=== PATIENT | male | born 1990 | race Caucasian/White ===

== ENCOUNTER 2019-09-27 00:09 | Emergency (ER) | payer SELFPAY ==
[~2019-09-27] VITALS: Ht 172.7 cm; Wt 77.1 kg
[~2019-09-27 00:09] MED LIST: CETI5TAB6 PO; FLO110 IH
[2019-09-27 00:20] VITALS: BP_SYST 135
--- NOTE | 2019-09-27 00:24 | NUR ---
tPatient triaged and placed in waiting room. VSS and patient appears in no acute distress at this time. Accompanied by self, awaiting available bed, and MD notified of need for MSE.
--- NOTE | 2019-09-27 01:07 | NUR ---
Patient to ER bed 05 for evaluation. Side rails up.
--- NOTE | 2019-09-27 01:30 | NUR ---
Patient AAO x 4 ambulates to ER bed 05 with complaints of cough, fever, fatigue, and chills x 4 days and vomited x 2 episodes today. Self medicated with Tylenol x 3 hours ago. Current TA temperature is 98.8 F. Even chest rise and fall with respirations. Will continue to monitor.
[2019-09-27] MEDS ORDERED: ONDANSETRON 4 MG ODT TAB PO ONE (01:45)
--- NOTE | 2019-09-27 02:04 | NUR ---
Medication administered. Pt tolerated well.
--- NOTE | 2019-09-27 02:35 | NUR ---
Patient given written and verbal discharge instructions and verbalizes understanding. ER MD Gerardo discussed with patient the results and treatment provided. Patient in stable condition. ID arm band removed. Rx of Zofran given. Patient educated on pain management and to follow up with PMD. Pain Scale 0. Opportunity for questions provided and answered. Medication side effect fact sheet provided.
[2019-09-27 02:37] VITALS: BP_SYST 127
== END 2019-09-27 02:35 | disposition home or self-care (01) ==
LOC: SED 00:09
DX: R09.81 Nasal congestion (principal); R05 Cough; R11.10 Vomiting, unspecified; J45.909 Unspecified asthma, uncomplicated
CPT/HCPCS: 86710; 99283; Q0162; 36415

== ENCOUNTER 2020-04-10 19:53 | Emergency (ER) | payer OTHER ==
[~2020-04-10] VITALS: Ht 172.7 cm; Wt 77.1 kg
[2020-04-10 20:10] VITALS: BP_SYST 155
[2020-04-10 23:36] VITALS: BP_SYST 136
== END 2020-04-10 23:36 | disposition home or self-care (01) ==
LOC: SED 19:53
DX: S33.5XXA Sprain of ligaments of lumbar spine, initial encounter (principal); S13.9XXA Sprain of joints and ligaments of unspecified parts of neck, initial encounter; J45.909 Unspecified asthma, uncomplicated; X50.0XXA Overexertion from strenuous movement or load, initial encounter; Y93.89 Activity, other specified; Y92.89 Other specified places as the place of occurrence of the external cause; Y99.8 Other external cause status
CPT/HCPCS: 70450-TC; 72125-TC; 72131; 99285

== ENCOUNTER 2020-06-15 19:49 | Emergency (ER) | payer SELFPAY ==
[~2020-06-15] VITALS: Ht 175.3 cm; Wt 77.1 kg
[2020-06-15 20:20] VITALS: BP_SYST 139
--- NOTE | 2020-06-15 20:20 | NUR ---
Placed in room 7 . Placed on library monitor, blood pressure machine and pulse oximeter. To gown for exam. Side rails up.
--- NOTE | 2020-06-15 20:24 | NUR ---
ER at bedside examining patient.
--- NOTE | 2020-06-15 20:25 | NUR ---
Pt presents to the ER c/o spider bite to the R wrist x 20 mins ago. Pt denies SOB, d/c, hives. Pt has localized redness. Denies allergies.
--- NOTE | 2020-06-15 21:22 | NUR ---
Lisha keller in ED - 06/15/20 at 2133 by [email or web address] VALDO Henry at bedside examining patient.
--- NOTE | 2020-06-15 21:24 | NUR ---
Note undone in EDM - 06/15/20 at 2134 by [email or web address] Pt presents to the ER c/o spider bite to the R wrist x 20 mins ago. Pt denies SOB, d/c, hives. Pt has localized redness. Denies allergies.
[2020-06-15 21:30] VITALS: BP_SYST 139
--- NOTE | 2020-06-15 21:30 | NUR ---
Patient given written and verbal discharge instructions and verbalizes understanding. ER MD discussed with patient the results and treatment provided. Patient in stable condition. ID arm band removed. Patient educated on pain management and to follow up with PMD. Opportunity for questions provided and answered. Medication side effect fact sheet provided.
== END 2020-06-15 21:30 | disposition home or self-care (01) ==
LOC: SED 19:49
DX: T63.391A Toxic effect of venom of other spider, accidental (unintentional), initial encounter (principal); Y92.89 Other specified places as the place of occurrence of the external cause
CPT/HCPCS: 99281

== ENCOUNTER 2020-07-02 00:01 | Emergency (ER) | payer SELFPAY ==
[~2020-07-02] VITALS: Ht 175.3 cm; Wt 77.1 kg
[2020-07-02 00:05] VITALS: BP_SYST 155
--- NOTE | 2020-07-02 00:10 | NUR ---
Patient to ER bed 7 to gown for evaluation. Side rails up. Report given to JOHN CEDILLO.
--- NOTE | 2020-07-02 00:12 | NUR ---
Dr. Foster bedside for pt eval
[2020-07-02] MEDS ORDERED: NACL 0.9% 1,000 ML IV ONE (00:15)
[2020-07-02] MEDS ORDERED: KETOROLAC TROMETHAMINE 30 MG VIAL IVP ONE (00:15)
--- NOTE | 2020-07-02 00:15 | NUR ---
Pt BIB family to ED C/O having 8-day abdominal pain associated with blood streak stools. Pain is periumbilical and rated 7/10. He denies past medical history of surgeries. No other complaints noted VSS no s/s of acute distress Resting on gurney rails up
--- NOTE | 2020-07-02 00:30 | NUR ---
Pt taken to Radiology in stable condition
--- NOTE | 2020-07-02 00:50 | NUR ---
Pt back from Radiology, well tolerated
--- NOTE | 2020-07-02 01:06 | NUR ---
Lab bedside for blood draw
[2020-07-02 01:31] LABS: CREATININE 0.89 mg/dL (0.55-1.30); POTASSIUM 3.3 mmol/L (3.5-5.1)
[2020-07-02 01:33] LABS: BILIRUBIN,URINE NEGATIVE (NEGATIVE); BLOOD, URINE NEGATIVE (NEGATIVE); CLARITY/URINE CLEAR (CLEAR); COLOR,URINE YELLOW (YELLOW); GLUCOSE,URINE NEGATIVE (NEGATIVE); KETONES,URINE NEGATIVE (NEGATIVE); LEUKOCYTE ESTERASE ,URINE NEGATIVE (NEGATIVE); NITRITE, URINE NEGATIVE (NEGATIVE); PH,URINE 7.5 (5.0-8.0); PROTEIN URINE NEGATIVE (NEGATIVE); UROBILINOGEN,URINE 0.2 (0.2-1.0)
[2020-07-02 01:35] LABS: BASOPHILS % (AUTO) 0.5 % (0.0-2.0); EOSINOPHILS # (AUTO) 0.2 K/uL (0.0-0.4); EOSINOPHILS % (AUTO) 3.6 % (0.0-4.0); HEMATOCRIT 45.3 % (36-54); HEMOGLOBIN 15.7 g/dL (14.0-18.0); LYMPHOCYTES # (AUTO) 2.3 K/uL (1.0-5.5); LYMPHOCYTES % (AUTO) 34.6 % (20.5-51.5); MEAN CORPUSCULAR HEMOGLOBIN 29 pg (27-31); MEAN CORPUSCULAR HGB CONC 35 % (32-36); MEAN CORPUSCULAR VOLUME 84 fL (79.0-98.0); MONOCYTES # (AUTO) 0.4 K/uL (0.0-1.0); MONOCYTES % (AUTO) 6.9 % (1.7-9.3); NEUTROPHILS # (AUTO) 3.6 K/uL (1.8-7.7); NEUTROPHILS % (AUTO) 54.4 % (40.0-70.0); PLATELET COUNT (AUTO) 266 K/uL (130-430); RED BLOOD CELL COUNT(AUTO) 5.42 MIL/uL (4.2-6.2); RED CELL DISTRIBUTION WIDTH 12.4 % (9.0-15.0); WHITE BLOOD COUNT (AUTO) 6.6 K/uL (4.8-10.8)
[2020-07-02 01:37] LABS: ALBUMIN 4.4 g/dL (3.4-4.8); TOTAL BILIRUBIN 0.4 mg/dL (0.0-1.0)
[2020-07-02 01:38] VITALS: BP_SYST 155
--- NOTE | 2020-07-02 01:38 | NUR ---
Patient given written and verbal discharge instructions and verbalizes understanding. ER MD discussed with patient the results and treatment provided. Patient in stable condition. ID arm band removed. Rx of Milk of Magnesia given. Patient educated on pain management and to follow up with PMD. Pain Scale 0/10 Opportunity for questions provided and answered. Medication side effect fact sheet provided.
== END 2020-07-02 01:38 | disposition home or self-care (01) ==
LOC: SED 00:01
DX: K59.00 Constipation, unspecified (principal); J45.909 Unspecified asthma, uncomplicated
CPT/HCPCS: 36415; 80053; 81003; 85025; 99284

== ENCOUNTER 2020-11-06 06:13 | Emergency (ER) | payer SELFPAY ==
[~2020-11-06] VITALS: Ht 175.3 cm; Wt 77.1 kg
[2020-11-06 06:13] VITALS: BP_SYST 162
[2020-11-06] MEDS ORDERED: NACL 0.9% 1,000 ML IV ONE (06:30)
[2020-11-06 07:07] LABS: BASOPHILS % (AUTO) 0.2 % (0.0-2.0); EOSINOPHILS % (AUTO) 0.4 % (0.0-4.0); HEMATOCRIT 44.4 % (36-54); HEMOGLOBIN 15.4 g/dL (14.0-18.0); LYMPHOCYTES # (AUTO) 0.9 K/uL (1.0-5.5); LYMPHOCYTES % (AUTO) 11.6 % (20.5-51.5); MEAN CORPUSCULAR HEMOGLOBIN 29 pg (27-31); MEAN CORPUSCULAR HGB CONC 35 % (32-36); MEAN CORPUSCULAR VOLUME 83 fL (79.0-98.0); MONOCYTES # (AUTO) 0.3 K/uL (0.0-1.0); MONOCYTES % (AUTO) 4.5 % (1.7-9.3); NEUTROPHILS # (AUTO) 6.5 K/uL (1.8-7.7); NEUTROPHILS % (AUTO) 83.3 % (40.0-70.0); PLATELET COUNT (AUTO) 239 K/uL (130-430); RED BLOOD CELL COUNT(AUTO) 5.34 MIL/uL (4.2-6.2); RED CELL DISTRIBUTION WIDTH 12.8 % (9.0-15.0); WHITE BLOOD COUNT (AUTO) 7.8 K/uL (4.8-10.8)
[2020-11-06 07:25] LABS: ANION GAP 9 (5-15); CALCIUM 9.1 mg/dL (8.4-11.0); CHLORIDE 104 mmol/L (98-107); GLUCOSE 102 mg/dL (70-99); POTASSIUM 3.3 mmol/L (3.5-5.1); SODIUM SERUM 141 mmol/L (136-145); UREA NITROGEN, BLOOD 12 mg/dL (8-21)
[2020-11-06 07:29] LABS: GFR AFRICAN AMERICAN 114 mL/min (>90)
[2020-11-06 07:32] LABS: BILIRUBIN,URINE NEGATIVE (NEGATIVE); BLOOD, URINE NEGATIVE (NEGATIVE); CLARITY/URINE CLEAR (CLEAR); COLOR,URINE YELLOW (YELLOW); GLUCOSE,URINE NEGATIVE (NEGATIVE); KETONES,URINE NEGATIVE (NEGATIVE); LEUKOCYTE ESTERASE ,URINE NEGATIVE (NEGATIVE); NITRITE, URINE NEGATIVE (NEGATIVE); PROTEIN URINE TRACE (NEGATIVE); UROBILINOGEN,URINE 0.2 (0.2-1.0)
[2020-11-06 07:33] LABS: ALANINE AMINOTRANSFERASE 87 U/L (12-78); ALBUMIN 4.1 g/dL (3.4-4.8); ASPARTATE AMINOTRANSFERASE 37 U/L (10-37); TOTAL BILIRUBIN 0.8 mg/dL (0.0-1.0)
[2020-11-06 07:41] LABS: BARBITURATE, URINE NEGATIVE (NEG <=200); BENZODIAZEPINE, URINE NEGATIVE (NEG <=150); CANNABINOID, URINE NEGATIVE (NEG <=50); COCAINE, URINE NEGATIVE (NEG <=150); METHAMPHETAMINES SCREEN,URINE NEGATIVE (NEG <=500); OPIATE, URINE NEGATIVE (NEG <=100); PHENCYCLIDINE SCREEN,URINE NEGATIVE (NEG <=25); UR TRICYCLIC ANTIDEPRESSANTS NEGATIVE (NEG <=300); URINE AMPHETAMINE NEGATIVE (NEG <=500); URINE METHADONE NEGATIVE (NEG <=200); URINE OXYCODONE SCREEN NEGATIVE (NEG <=100); URINE PROPOXYPHENE SCREEN NEGATIVE (NEG <=300)
[2020-11-06 08:11] LABS: FREE T4 (FREE THYROXINE) 0.7 ng/dL (0.6-1.6); THYROID STIMULATING HORMONE 0.48 uIu/mL (0.34-4.82)
[2020-11-06 08:23] VITALS: BP_SYST 137
== END 2020-11-06 08:20 | disposition home or self-care (01) ==
LOC: SED 06:13
DX: J98.01 Acute bronchospasm (principal); Z20.822 Contact with and (suspected) exposure to COVID-19
CPT/HCPCS: 36415; 71045; 80053; 80307; 81003; 84439; 84443-TC; 84484; 85025; 93005; 99285

== ENCOUNTER 2020-12-02 21:50 | Emergency (ER) | payer SELFPAY ==
[~2020-12-02] VITALS: Ht 172.7 cm; Wt 77.1 kg
[2020-12-02 22:00] VITALS: BP_SYST 168
[2020-12-02 22:34] LABS: CALCIUM 9.5 mg/dL (8.4-11.0); CREATININE 1.12 mg/dL (0.55-1.30); POTASSIUM 3.5 mmol/L (3.5-5.1)
[2020-12-02 22:35] LABS: HEMATOCRIT 45.9 % (36-54); HEMOGLOBIN 15.8 g/dL (14.0-18.0); RED BLOOD CELL COUNT(AUTO) 5.47 MIL/uL (4.2-6.2)
[2020-12-02 22:36] LABS: BASOPHILS % (AUTO) 3.7 % (0.0-2.0); EOSINOPHILS % (AUTO) 1.4 % (0.0-4.0); LYMPHOCYTES % (AUTO) 20.7 % (20.5-51.5); MEAN CORPUSCULAR HEMOGLOBIN 29 pg (27-31); MEAN CORPUSCULAR HGB CONC 35 % (32-36); MEAN CORPUSCULAR VOLUME 84 fL (79.0-98.0); MONOCYTES % (AUTO) 7.3 % (1.7-9.3); NEUTROPHILS # (AUTO) 4.7 K/uL (1.8-7.7); NEUTROPHILS % (AUTO) 66.9 % (40.0-70.0); PLATELET COUNT (AUTO) 294 K/uL (130-430); RED CELL DISTRIBUTION WIDTH 12.8 % (9.0-15.0)
[2020-12-02 22:37] LABS: BASOPHILS # (AUTO) 0.3 K/uL (0.0-0.2); EOSINOPHILS # (AUTO) 0.1 K/uL (0.0-0.4); LYMPHOCYTES # (AUTO) 1.8 K/uL (1.0-5.5); MONOCYTES # (AUTO) 0.5 K/uL (0.0-1.0)
[2020-12-02 22:40] LABS: ALBUMIN 4.5 g/dL (3.4-4.8); TOTAL BILIRUBIN 0.6 mg/dL (0.0-1.0)
[2020-12-02] MEDS ORDERED: IBUP-1971 PO (22:44)
[2020-12-02 23:03] VITALS: BP_SYST 170
== END 2020-12-02 23:03 | disposition home or self-care (01) ==
LOC: SED 21:50
DX: S09.90XA Unspecified injury of head, initial encounter (principal); W18.09XA Striking against other object with subsequent fall, initial encounter; Y93.89 Activity, other specified; Y92.89 Other specified places as the place of occurrence of the external cause; Y99.8 Other external cause status
CPT/HCPCS: 36415; 70450-TC; 76376; 80053; 85025; 99284

== ENCOUNTER 2021-02-04 23:27 | Emergency (ER) | payer SELFPAY ==
[~2021-02-04] VITALS: Ht 175.3 cm; Wt 77.1 kg
[~2021-02-04 23:27] MED LIST changes: -CETI5TAB6 PO; -FLO110 IH; +IBUP-1971 PO
[2021-02-04 23:39] VITALS: BP_SYST 152
[2021-02-05] MEDS ORDERED: NACL 0.9% 1,000 ML IV ONE
[2021-02-05] MEDS ORDERED: ONDANSETRON HCL 4 MG/2 ML VIAL IVP ONE (00:15)
[2021-02-05] MEDS ORDERED: MORPHINE 4 MG INJ. 4 MG/ML VIAL IVP ONE (00:15)
[2021-02-05 00:16] LABS: BILIRUBIN,URINE NEGATIVE (NEGATIVE); BLOOD, URINE NEGATIVE (NEGATIVE); CLARITY/URINE SL CLOUDY (CLEAR); COLOR,URINE YELLOW (YELLOW); GLUCOSE,URINE NEGATIVE (NEGATIVE); KETONES,URINE NEGATIVE (NEGATIVE); LEUKOCYTE ESTERASE ,URINE NEGATIVE (NEGATIVE); NITRITE, URINE NEGATIVE (NEGATIVE); PH,URINE 7.5 (5.0-8.0); PROTEIN URINE NEGATIVE (NEGATIVE); UROBILINOGEN,URINE 0.2 (0.2-1.0)
[2021-02-05 00:28] LABS: BASOPHILS % (AUTO) 0.6 % (0.0-2.0); EOSINOPHILS # (AUTO) 0.2 K/uL (0.0-0.4); HEMATOCRIT 46.1 % (36-54); HEMOGLOBIN 15.9 g/dL (14.0-18.0); LYMPHOCYTES # (AUTO) 2.5 K/uL (1.0-5.5); LYMPHOCYTES % (AUTO) 41.9 % (20.5-51.5); MEAN CORPUSCULAR HEMOGLOBIN 29 pg (27-31); MEAN CORPUSCULAR HGB CONC 35 % (32-36); MEAN CORPUSCULAR VOLUME 83 fL (79.0-98.0); MONOCYTES # (AUTO) 0.4 K/uL (0.0-1.0); MONOCYTES % (AUTO) 6.8 % (1.7-9.3); NEUTROPHILS # (AUTO) 2.8 K/uL (1.8-7.7); NEUTROPHILS % (AUTO) 47.7 % (40.0-70.0); PLATELET COUNT (AUTO) 269 K/uL (130-430); RED BLOOD CELL COUNT(AUTO) 5.53 MIL/uL (4.2-6.2); RED CELL DISTRIBUTION WIDTH 12.8 % (9.0-15.0); WHITE BLOOD COUNT (AUTO) 5.9 K/uL (4.8-10.8)
[2021-02-05 00:35] LABS: CALCIUM 9.8 mg/dL (8.4-11.0); CREATININE 1.23 mg/dL (0.55-1.30); POTASSIUM 3.7 mmol/L (3.5-5.1)
[2021-02-05 00:38] LABS: PROTHROMBIN TIME 9.9 SECS (9.5-12.5)
[2021-02-05 00:50] LABS: ALBUMIN 4.5 g/dL (3.4-4.8); TOTAL BILIRUBIN 0.6 mg/dL (0.0-1.0)
[2021-02-05] MEDS ORDERED: MAGNESIUM CITRATE 300 ML ORAL SOLUTION PO ONE (02:00)
[2021-02-05 02:11] VITALS: BP_SYST 152
== END 2021-02-05 02:13 | disposition home or self-care (01) ==
LOC: SED 23:27
DX: K59.00 Constipation, unspecified (principal); J45.909 Unspecified asthma, uncomplicated; Z79.899 Other long term (current) drug therapy
CPT/HCPCS: 36415; 74176; 76376; 80053; 81003; 82150; 83605; 83690; 85025; 85610; 87040; 99284; J2270; J2405

== ENCOUNTER 2021-04-08 21:05 | Emergency (ER) | payer SELFPAY ==
[~2021-04-08] VITALS: Ht 175.3 cm; Wt 81.6 kg
[2021-04-08 21:15] VITALS: BP_SYST 136
[2021-04-09] MEDS ORDERED: MECL-103 PO (00:22)
[2021-04-09] MEDS ORDERED: PHE25 PO (00:22)
[2021-04-09] MEDS ORDERED: BUTA1CAP43 PO (00:22)
[2021-04-09 00:35] VITALS: BP_SYST 136
== END 2021-04-09 00:35 | disposition home or self-care (01) ==
LOC: SED 21:05
DX: R51.9 Headache, unspecified (principal); J45.909 Unspecified asthma, uncomplicated; Z79.899 Other long term (current) drug therapy
CPT/HCPCS: 99283

== ENCOUNTER 2022-04-03 19:08 | Emergency (ER) | payer SELFPAY ==
[~2022-04-03] VITALS: Ht 175.3 cm; Wt 77.1 kg
[~2022-04-03 19:08] MED LIST changes: +BUTA1CAP43 PO; +MECL-103 PO; +PHE25 PO
--- NOTE | 2022-04-03 19:10 | NUR ---
Pt brought by self, A&Ox4, pt presents to ER with chest wall pain and anxiety, skin pink and warm, cap refill <3, VSS, will cont to monitor.
[2022-04-03 19:35] VITALS: BP_SYST 152
--- NOTE | 2022-04-03 22:20 | NUR ---
Dr Reyes evaluating patient at bedside
--- NOTE | 2022-04-03 22:55 | NUR ---
Lisha keller in [facility] - 04/03/22 at 2308 by [email or web address] Report given to Justine CEDILLO
--- NOTE | 2022-04-03 22:55 | NUR ---
Report given to Justine ORLANDO
[2022-04-03] MEDS ORDERED: IBUPROFEN 800 MG TABLET PO ONE (23:15)
--- NOTE | 2022-04-04 00:53 | NUR ---
Patient given written and verbal discharge instructions and verbalizes understanding. ER MD discussed with patient the results and treatment provided. Patient in stable condition. ID arm band removed. Rx of ibuprofen given. Pt will follow up care with PCP. Opportunity for questions provided and answered. Medication side effect fact sheet provided.
[2022-04-04 00:54] VITALS: BP_SYST 148
== END 2022-04-04 00:54 | disposition home or self-care (01) ==
LOC: SED 19:08
DX: R07.89 Other chest pain (principal); J45.909 Unspecified asthma, uncomplicated; Z79.899 Other long term (current) drug therapy
CPT/HCPCS: 71045; 99283